=== PATIENT | female | born 1995 | race African-American/Black ===

== ENCOUNTER 2021-12-14 08:18 | Outpatient (CLI) | payer OTHER | END 2021-12-14 08:19 | disposition home or self-care (01) | LOC: CSHWCC 08:18 | PROVIDERS: ATTEND Nurse Practitioner Family | DX: T81.89XD Other complications of procedures, not elsewhere classified, subsequent encounter (principal) | CPT/HCPCS: 97605; 99203; G0463 ==

== ENCOUNTER 2021-12-21 13:23 | Outpatient (CLI) | payer OTHER | END 2021-12-21 13:24 | disposition home or self-care (01) | LOC: CSHWCC 13:23 | PROVIDERS: ATTEND Nurse Practitioner Family | DX: T81.89XD Other complications of procedures, not elsewhere classified, subsequent encounter (principal) | CPT/HCPCS: 99212; G0463 ==

== ENCOUNTER 2022-01-04 09:23 | Outpatient (CLI) | payer OTHER | END 2022-01-04 09:24 | disposition home or self-care (01) | LOC: CSHWCC 09:23 | PROVIDERS: ATTEND Nurse Practitioner Family | DX: T81.89XD Other complications of procedures, not elsewhere classified, subsequent encounter (principal) | CPT/HCPCS: 87070; 87205; 99212; G0463 ==

== ENCOUNTER 2022-01-15 11:42 | Outpatient (CLI) | payer OTHER | END 2022-01-15 11:43 | disposition home or self-care (01) | LOC: CSHWCC 11:42 | PROVIDERS: ATTEND Preventive Medicine Undersea and Hyperbaric Medicine | DX: T81.89XD Other complications of procedures, not elsewhere classified, subsequent encounter (principal) | CPT/HCPCS: 36416; 99212; G0463 ==

== ENCOUNTER 2022-01-18 15:25 | Outpatient (CLI) | payer OTHER | END 2022-01-18 15:26 | disposition home or self-care (01) | LOC: CSHWCC 15:25 | PROVIDERS: ATTEND Nurse Practitioner Family | DX: T81.89XD Other complications of procedures, not elsewhere classified, subsequent encounter (principal) | CPT/HCPCS: 36416; 99212; G0463 ==

== ENCOUNTER 2022-03-01 14:02 | Outpatient (CLI) | payer SELFPAY | END 2022-03-01 14:03 | disposition home or self-care (01) | LOC: CSHWCC 14:02 | PROVIDERS: ATTEND Nurse Practitioner Family | DX: T81.89XD Other complications of procedures, not elsewhere classified, subsequent encounter (principal) | CPT/HCPCS: 99212; G0463 ==

== ENCOUNTER 2024-12-04 16:05 | Outpatient (CLI) | payer OTHER | END 2024-12-04 16:06 | disposition home or self-care (01) | LOC: CSHWCC 16:05 | PROVIDERS: ATTEND Nurse Practitioner Family | DX: E11.621 Type 2 diabetes mellitus with foot ulcer (principal); L97.411 Non-pressure chronic ulcer of right heel and midfoot limited to breakdown of skin; E66.9 Obesity, unspecified; E11.65 Type 2 diabetes mellitus with hyperglycemia; F12.90 Cannabis use, unspecified, uncomplicated | CPT/HCPCS: 99212; G0463 ==

== ENCOUNTER 2024-12-12 10:11 | Outpatient (CLI) | payer OTHER | END 2024-12-12 10:12 | disposition home or self-care (01) | LOC: CSHWCC 10:11 | PROVIDERS: ATTEND Nurse Practitioner Family | DX: Z09 Encounter for follow-up examination after completed treatment for conditions other than malignant neoplasm (principal); E11.65 Type 2 diabetes mellitus with hyperglycemia; F12.90 Cannabis use, unspecified, uncomplicated; E66.9 Obesity, unspecified; Z87.2 Personal history of diseases of the skin and subcutaneous tissue | CPT/HCPCS: 99212; G0463 ==

== ENCOUNTER 2024-12-19 15:42 | Outpatient (CLI) | payer OTHER | END 2024-12-19 15:43 | disposition home or self-care (01) | LOC: CSHWCC 15:42 | PROVIDERS: ATTEND Nurse Practitioner Family | DX: Z09 Encounter for follow-up examination after completed treatment for conditions other than malignant neoplasm (principal); Z87.2 Personal history of diseases of the skin and subcutaneous tissue; E66.9 Obesity, unspecified; E11.65 Type 2 diabetes mellitus with hyperglycemia; F12.90 Cannabis use, unspecified, uncomplicated | CPT/HCPCS: 99212; G0463 ==